=== PATIENT | female | born 1935 | race Caucasian/White ===

== ENCOUNTER → 2017-06-04 | Outpatient (CLI) | payer MEDICARE, OTHER | END | disposition home or self-care (01) | LOC: GMAM 16:36 | PROVIDERS: ATTEND Family Medicine | DX: E03.9 Hypothyroidism, unspecified (principal); E55.9 Vitamin D deficiency, unspecified ==

== ENCOUNTER → 2017-06-10 | Outpatient (CLI) | payer MEDICARE, OTHER | LOC: SL 19:30 | PROVIDERS: ATTEND Family Medicine | DX: G47.10 Hypersomnia, unspecified (principal); G47.9 Sleep disorder, unspecified; R06.83 Snoring; G47.00 Insomnia, unspecified; I25.9 Chronic ischemic heart disease, unspecified; I10 Essential (primary) hypertension ==

== ENCOUNTER → 2017-09-09 | Outpatient (CLI) | payer MEDICARE, OTHER | LOC: SL 20:23 | PROVIDERS: ATTEND Family Medicine | DX: R06.83 Snoring (principal); G47.9 Sleep disorder, unspecified; I10 Essential (primary) hypertension; G47.10 Hypersomnia, unspecified ==

== ENCOUNTER → 2018-03-28 | Outpatient (CLI) | payer MEDICARE, OTHER | LOC: GMAM 14:26 | PROVIDERS: ATTEND Family Medicine | DX: E03.9 Hypothyroidism, unspecified (principal); E55.9 Vitamin D deficiency, unspecified ==

== ENCOUNTER → 2018-05-21 | Outpatient (CLI) | payer MEDICARE, OTHER ==
--- NOTE | 2018-05-21 09:32 | MRI ---
EXAM DESCRIPTION: Brain w/wo Contrast CLINICAL HISTORY: TIA, episode in April 2018 unable to speak COMPARISON: None available TECHNIQUE: MRI of the brain is performed according to our usual protocol including multiplanar multi sequence technique. Post gadolinium imaging is performed following IV administration of routine adult dose of gadolinium contrast IV. FINDINGS: Sagittal T1 images show intact corpus callosum. Convex upper margin of the pituitary gland may indicate pituitary cyst or adenoma. Targeted MRI of the pituitary gland could be performed if clinically indicated. Normal T1 appearance of the desiree and medulla and upper cervical cord. Normal signal intensity within the clivus and calvarium. Axial T2 fat sat images reveal preservation of intracranial vascular flow voids. Normal calles matter T2 signal intensity. Abnormal white matter hyperintensity is extensive. Prominent ventricles and sulci are consistent with age-related cerebral volume loss.. The globes appear intact and symmetrical. Mucosal thickening and opacification of the left maxillary sinus suggests chronic sinusitis. No abnormal fluid signal in the other paranasal sinuses, tympanic cavities or mastoid air cells. Axial flair images show confluent white matter hyperintensities in the subcortical and central white matter of the cerebral hemispheres. 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 Diffusion weighted images are negative for focal intense increased signal intensity in the brain parenchyma to suggest restricted diffusion. ADC mapping is negative. Axial T1 precontrast images show normal calles-white matter differentiation. No high signal intensity hemorrhagic lesion of the brain parenchyma. No subdural hematoma. Minimal signal loss suggesting calcified intracranial vessels and incidental basal ganglial calcification. Axial susceptibility weighted images are otherwise negative for focal signal loss to suggest abnormal brain parenchymal calcification or hemosiderin deposition. After IV contrast, axial T1 images show normal enhancement of intracranial vessels. No enhancing intracranial mass or abnormal parenchymal enhancement to suggest disruption of the blood brain barrier. Positive mucosal enhancement of the left maxillary sinus. Coronal T1 postcontrast images show normal dural sinus enhancement. There is inhomogeneous enhancement of the pituitary gland with lower signal intensity in the left side of the gland where the superior margin is convex. There is slight rightward deviation of the pituitary stalk. This would suggest the presence of a left-sided pituitary lesion 8 mm consistent with a microadenoma. Sagittal postcontrast images confirm the findings. IMPRESSION: Senescent brain with extensive chronic microvascular ischemic changes. 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 Electronically signed by: Dung Bravo MD 05/21/2018 9:30 AM [facility]
== END ==
LOC: MRI 08:07
PROVIDERS: ATTEND Family Medicine
DX: G45.9 Transient cerebral ischemic attack, unspecified (principal); J32.9 Chronic sinusitis, unspecified; E23.7 Disorder of pituitary gland, unspecified

== ENCOUNTER → 2018-06-16 | Outpatient (CLI) | payer MEDICARE, OTHER | LOC: GMAM 18:26 | PROVIDERS: ATTEND Family Medicine | DX: D35.2 Benign neoplasm of pituitary gland (principal) ==

== ENCOUNTER → 2018-06-19 | Outpatient (CLI) | payer MEDICARE, OTHER ==
--- NOTE | 2018-06-19 15:41 | CT ---
EXAM DESCRIPTION: Head CLINICAL HISTORY: TIA COMPARISON: Previous MRI of the brain May 21, 2018 TECHNIQUE: Noncontrast head CT was performed with routine protocol. FINDINGS: Normal calles-white matter differentiation. Ventricles and sulci are prominent consistent with age-related cerebral volume loss. Low density areas in the white matter are consistent with chronic microvascular ischemic changes in both cerebral hemispheres. This pattern was seen on the previous MRI of the brain. No high density hemorrhage, focal edema or shift of the midline. No sulcal effacement. Normal orbital contents. Basilar cisterns appear clear. Intact calvarium with no fracture or lytic lesion. Normal aeration of tympanic cavities and mastoid air cells. Complete opacification of the left maxillary sinus suggests chronic sinusitis or mucocele. Sclerotic bone is seen around the abnormal fluid collection with thinning of bone medially. Correlated with ENT exam. There is calcification of the intracranial internal carotid arteries advanced degenerative changes of the temporomandibular joints. Skull base appears intact. Symmetrical internal auditory canals. IMPRESSION: Senescent brain with chronic microvascular ischemic changes in the cerebral white matter. Left maxillary sinus mucocele. No acute intracranial pathologic process. This exam was performed according to our departmental dose-optimization program, which includes automated exposure control, adjustment of the mA and/or kV according to patient size and/or use of iterative reconstruction technique. Total DLP equals 859.97 mGycm. Electronically signed by: Dung Bravo MD 06/19/2018 3:39 PM [facility]
--- NOTE | 2018-06-20 07:40 | CT ---
EXAM DESCRIPTION: CT neck with contrast CLINICAL HISTORY: NECK MASS COMPARISON: None Available. TECHNIQUE: Spiral CT with multiplanar reformatted images. Intravenous iodinated nonionic contrast This exam was performed according to our departmental dose-optimization program, which includes automated exposure control, adjustment of the mA and/or kV according to patient size and/or use of iterative reconstruction technique. 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 Approximate measurements 1.3 x 1.2 x 2 cm. Normal appearance of the parotid, submandibular glands. Multinodular thyroid. No suspicious thyroid lesion. Dominant cyst/nodule on the left 1.2 cm. No imaging follow-up necessary No mass lesion elsewhere throughout the neck. No lymphadenopathy Visualized lung bases are clear No acute bony abnormality. Cervical spondylosis. Degenerative disc disease primarily C4-5 and C5-C6. 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
== END ==
LOC: CT 14:00
PROVIDERS: ATTEND Family Medicine
DX: G45.9 Transient cerebral ischemic attack, unspecified (principal); R22.9 Localized swelling, mass and lump, unspecified; D35.2 Benign neoplasm of pituitary gland; J34.1 Cyst and mucocele of nose and nasal sinus; I77.89 Other specified disorders of arteries and arterioles

== ENCOUNTER → 2018-06-25 | Outpatient (CLI) | payer MEDICARE, OTHER | LOC: GMAM 16:38 | PROVIDERS: ATTEND Family Medicine | DX: I65.22 Occlusion and stenosis of left carotid artery (principal) ==

== ENCOUNTER → 2018-08-04 | Outpatient (CLI) | payer MEDICARE, OTHER | LOC: GMAM 10:44 | PROVIDERS: ATTEND Family Medicine | DX: Z01.812 Encounter for preprocedural laboratory examination (principal); I48.91 Unspecified atrial fibrillation ==

== ENCOUNTER 2018-09-24 13:12 | Emergency (ER) | payer MEDICARE, OTHER ==
[2018-09-24 14:54] VITALS: TEMP 97
[2018-09-24] MEDS ORDERED: SODIUM CHLORIDE 0.9% (FLUSH) 10 ML SYG IV PRN (15:13)
--- NOTE | 2018-09-24 15:52 | CT ---
EXAM DESCRIPTION: Head CLINICAL HISTORY: tia COMPARISON: Previous CT head June 19, 2018 TECHNIQUE: Noncontrast head CT was performed with routine protocol. FINDINGS: Normal calles-white matter differentiation. Ventricles and sulci are prominent consistent with age-related cerebral volume loss. Low density white matter is consistent with chronic microvascular ischemic change. The pattern is stable compared to previous study. No high density hemorrhage, focal edema or shift of the midline. No sulcal effacement. Normal orbital contents. Basilar cisterns appear clear. Intact calvarium with no fracture or lytic lesion. Normal aeration of tympanic cavities and mastoid air cells. No fluid levels in the paranasal sinuses. Skull base appears intact. Symmetrical internal auditory canals. Coronal and sagittal reformatted images confirm the findings. IMPRESSION: No acute intracranial pathologic process. This exam was performed according to our departmental dose-optimization program, which includes automated exposure control, adjustment of the mA and/or kV according to patient size and/or use of iterative reconstruction technique. Total DLP equals 859.97 mGycm. Electronically signed by: Dung Bravo MD 09/24/2018 3:50 PM CDT
--- NOTE | 2018-09-24 15:58 | RAD ---
EXAM DESCRIPTION: Chest,1 View CLINICAL HISTORY: 83 years Female, weakness COMPARISON: Previous study August 04, 2018 TECHNIQUE: AP portable chest. FINDINGS: Heart size is prominent with normal pulmonary vascularity. Dextroscoliotic curvature of the thoracic spine. Right hemidiaphragm is elevated. No consolidating infiltrate. No pulmonary mass or worrisome nodule. No pneumothorax or pleural effusion. Bones are unremarkable. IMPRESSION: No acute process is identified in the chest. Electronically signed by: Dung Bravo MD 09/24/2018 3:55 PM CDT
--- NOTE | 2018-09-24 15:59 | RAD ---
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 No fracture or dislocation is identified. 2. Screws are seen fixating the acetabular component. No hardware failure or loosening is seen. Osseous structures are diffusely osteopenic. Osseous body lateral to the acetabulum is again seen similar to previous exam. Left hip arthroplasty is partly visualized. Electronically signed by: Tirso Shaikh MD 09/24/2018 3:57 PM CDT
--- NOTE | 2018-09-24 16:01 | RAD ---
EXAM DESCRIPTION: Pelvis,2 or More Views CLINICAL HISTORY: fall pain COMPARISON: June 03, 2015 IMPRESSION: AP neutral and frog-leg lateral views of the pelvis show diffuse osteopenia the osseous structures. Bilateral total hip arthroplasties are seen with cement fixation of the right femoral component. No fracture or dislocation is identified. Severe disc degenerative changes and levocurvature of the lower lumbar spine is partly included in the [id number]. Evaluation for fracture is limited given the degree of osteopenia. If high clinical concern for acute fracture, correlation with MRI recommended given its greater sensitivity in the osteopenic patient. If the patient cannot tolerate MRI imaging or more urgent imaging is required, CT could be performed, however it is less sensitive in the osteopenic patient when compared to MRI. Electronically signed by: Tirso Shaikh MD 09/24/2018 3:59 PM CDT
--- NOTE | 2018-09-24 16:34 | ED.PDOC ---
History of Present Illness - General Chief Complaint: General Stated Complaint: weakness, confusion and fall last week Time Seen by Provider: 09/24/18 13:55 Source: patient, family Exam Limitations: no limitations - History of Present Illness Initial Comments: PT PRESENTS TO THE ED BROUGHT IN BY HER DAUGHTER DUE TO DIFFICULTY WALKING AND APPARENT RLE WEAKNESS. PTS DAUGHTER STATES THAT PT WAS FUNCTIONING NORMALLY YESTERDAY MORNING BUT SHE NOTICED DIFFICULTY WITH AMBULATION LAST NIGHT WHEN PT WAS ATTEMPTING TO GO EAT DINNER AND USE THE BATHROOM. PTS DAUGHTER STATES THAT SHE WAS DRAGGING HER RIGHT LEG AND IT TOOK 1 HOUR TO GET TO THE BATHROOM AND BACK. NO FACIAL DROOP, SLURRED SPEECH, OR UPPER EXTREMITY WEAKNESS HAS BEEN REPORTED. PTS DAUGHTER DOES ADD THAT PTS PHYSICAL FUNCTIONING AND MENTAL STATUS HAS BEEN DECLINING SINCE HAVING A KNEE REPLACEMENT DONE ON 08/18/18. DAUGHTER ALSO STATES THAT PATIENT FALL WHILE GOING UP STAIRS AT THE [facility]CTORS OFFICE LAST WEEK SUSTAINING BRUISES TO HER RIGHT ARM AND HIP. Timing/Duration: intermittent, resolved prior to arrival Severity: moderate Associated Symptoms: denies symptoms Allergies/Adverse Reactions: Allergies Morphine Adverse Reaction (Verified 09/24/18 14:51) Home Medications: Ambulatory Orders Lisinopril & Hydrochlorothiazi [Lisinopril/Hctz 20-12.5 mg] 1 tab PO DAILY 05/31/14 Multiple Vitamins W/ Minerals [Centrum] 1 tab PO DAILY 05/31/14 [place]-3 Fatty Acids [Fish Oil] 1,200 mg PO DAILY 05/31/14 Rosuvastatin Calcium [Crestor] 40 mg PO BEDTIME 05/31/14 Sulfamethoxazole-Trimethoprim [Bactrim Ds 800-160 mg] 1 tab PO BID 05/31/14 rifAMPin [Rifampin] 300 mg PO BID 05/31/14 Hydrocodone-Acetaminophen [Hydrocodone/Acetaminophen 5-325 mg] 1 tab PO Q6H PRN #90 tab 06/07/14 Rivaroxaban [Xarelto] 10 mg PO QD #30 tab 06/07/14 Review of Systems - Review of Systems Constitutional: Denies: chills, fever EENTM: Denies: blurred vision, double vision Respiratory: Denies: cough, short of breath Cardiology: Denies: chest pain, palpitations Gastrointestinal/Abdominal: Denies: abdominal pain, nausea, vomiting Genitourinary: Denies: dysuria, frequency Musculoskeletal: Denies: back pain, muscle pain Skin: Denies: dryness, lesions Neurological: States: weakness. Denies: headache, numbness Endocrine: States: no symptoms reported Hematologic/Lymphatic: States: no symptoms reported Past Medical History (General) - Patient Medical History Hx Seizures: No Hx Stroke: Yes - TIA Hx Dementia: No Hx Asthma: No Hx of COPD: No Hx Cardiac Disorders: Yes Hx Congestive Heart Failure: No Hx Pacemaker: No Hx Hypertension: Yes Hx Thyroid Disease: No Hx Diabetes: No Hx Gastroesophageal Reflux: No Hx Renal Disease: No Hx Cancer: No Hx of HIV: No Hx Hepatitis C: No Hx MRSA: No MRSA Source:: Nose Surgical History: appendectomy, Hysterectomy - Vaccination History Hx Tetanus, Diphtheria Vaccination: Yes Hx Influenza Vaccination: Yes Hx Pneumococcal Vaccination: Yes Immunizations Up to Date: Yes - Social History Hx Tobacco Use: No Hx Chewing Tobacco Use: No Hx Alcohol Use: No Hx Substance Use: No Hx Substance Use Treatment: No Hx Depression: No Feels Threatened In Home Enviroment: No Feels Threatened In a Relationship: No Hx Physical Abuse: No Hx Emotional Abuse: No Hx Suspected Abuse: No - Female History Patient is a Female of Child Bearing Age (10 -59 yrs old): No Patient : No Family Medical History - Family History Mother Family History: No Known Living Status: Hx Family Asthma: No Hx Family Congestive Heart Failure: No Hx Family Hypertension: No Physical Exam - Physical Exam General Appearance: Alert, Frail, No apparent distress, Well Developed, Well Groomed, Well Hydrated Ears, Nose, Throat: hearing grossly normal Neck: non-tender, full range of motion Respiratory: lungs clear, normal breath sounds, no respiratory distress Cardiovascular/Chest: normal peripheral pulses, regular rate, rhythm Gastrointestinal/Abdominal: non tender, soft, no organomegaly Back Exam: normal inspection, no CVA tenderness Extremity: pedal edema, other - BRUISING NOTED TO RIGHT ELBOW AND RIGHT HIP Neurologic: no motor/sensory deficits, alert, normal mood/affect Progress - Progress Progress: 09/24/18 17:30 PT RESTING COMFORTABLY, LABS, DIAGNOSTICS, AND PLAN DISCUSSED WITH PATIENT AND FAMILY. NO CHANGE IN NEUROLOGIC FINDINGS. PTS BP IS ELEVATED TO 180/109. LABETALOL 10MG ORDERED. 09/24/18 18:29 REPEAT BP 164/83 - Results/Orders Results/Orders: Laboratory Tests 05/09/24/18 09/24/18 15:13 15:13 15:16 WBC 7.4 RBC 4.48 Hgb 13.7 Hct 41.1 MCV 91.7 MCH 30.5 MCHC 33.3 RDW 14.2 Plt Count 258 MPV 6.6 L Absolute Neuts (auto) 5.40 Absolute Lymphs (auto) 1.20 Absolute Monos (auto) 0.80 Absolute Eos (auto) 0.00 Absolute Basos (auto) 0.00 Neutrophils % 72.2 Lymphocytes % 16.3 L Monocytes % 10.4 H Eosinophils % 0.5 L Basophils % 0.6 Sodium 130 L Potassium 3.9 Chloride 96 L Carbon Dioxide 23 Anion Gap 14.9 BUN 15 Creatinine 0.55 L BUN/Creatinine Ratio 27.3 H POC Glucose 113 H Random Glucose 99 Serum Osmolality 261.7 L Calcium 9.0 Total Bilirubin 0.9 AST 22 ALT 22 Alkaline Phosphatase 91 Creatine Kinase 48 CK-MB (CK-2) 1.6 Troponin I < 0.02 Serum Total Protein 7.0 Albumin 4.1 Globulin 2.9 Albumin/Globulin Ratio 1.4 - EKG/XRAY/CT EKG: Sinus - @70BPM, NL INTERVALS, NL AXIS, no ST T wave changes - NO OLD EKG FOR COMPARISON XRAY: chest - NO ACUTE FINDINGS PER RAD CT: HEAD: NO ACUTE FINDINGS CT Ordered: Yes CT Interpretation Call Back: No Departure - Departure Clinical Impression: TIA (transient ischemic attack), Declining functional status Time of Disposition: 18:28 Disposition: Transfer to Hospital Condition: Fair Departure Forms: ED Discharge - Pt. Copy, Patient Portal Self Enrollment Referrals: DULCE MARIA DURAND [Primary Care Provider] - 1-2 Weeks Home Medications: Ambulatory Orders Lisinopril & Hydrochlorothiazi [Lisinopril/Hctz 20-12.5 mg] 1 tab PO DAILY 05/31/14 Multiple Vitamins W/ Minerals [Centrum] 1 tab PO DAILY 05/31/14 [place]-3 Fatty Acids [Fish Oil] 1,200 mg PO DAILY 05/31/14 Rosuvastatin Calcium [Crestor] 40 mg PO BEDTIME 05/31/14 Sulfamethoxazole-Trimethoprim [Bactrim Ds 800-160 mg] 1 tab PO BID 05/31/14 rifAMPin [Rifampin] 300 mg PO BID 05/31/14 Hydrocodone-Acetaminophen [Hydrocodone/Acetaminophen 5-325 mg] 1 tab PO Q6H PRN #90 tab 06/07/14 Rivaroxaban [Xarelto] 10 mg PO QD #30 tab 06/07/14 Transfer to Outside Facility - Transfer Information Accepting Provider:: DR. AYALA Accepting Facility: [facility] Reason for Transfer: required specialist not available - NEUROLOGY
[2018-09-24] MEDS ORDERED: LABETALOL INJ 5 MG/ML VIAL IV ONE ×2 (16:55→18:02)
[2018-09-24 19:09] VITALS: BP 155/77; O2SAT 95
== END 2018-09-24 19:12 | disposition short-term general hospital (02) ==
LOC: ER 13:12
DX: G45.9 Transient cerebral ischemic attack, unspecified (principal); R53.81 Other malaise; S70.01XA Contusion of right hip, initial encounter; S40.021A Contusion of right upper arm, initial encounter; I10 Essential (primary) hypertension; I51.9 Heart disease, unspecified; W10.9XXA Fall (on) (from) unspecified stairs and steps, initial encounter; Y92.531 Health care provider office as the place of occurrence of the external cause; Z86.73 Personal history of transient ischemic attack (TIA), and cerebral infarction without residual deficits; Z79.899 Other long term (current) drug therapy; Z88.5 Allergy status to narcotic agent

== ENCOUNTER → 2018-12-17 | Outpatient (CLI) | payer MEDICARE, OTHER | LOC: GMAM 14:23 | PROVIDERS: ATTEND Family Medicine | DX: E55.9 Vitamin D deficiency, unspecified (principal) ==

== ENCOUNTER → 2019-02-09 | Outpatient (CLI) | payer MEDICARE, OTHER | LOC: SL 19:30 | PROVIDERS: ATTEND Family Medicine | DX: G47.10 Hypersomnia, unspecified (principal); G31.84 Mild cognitive impairment of uncertain or unknown etiology; F39 Unspecified mood [affective] disorder ==

== ENCOUNTER → 2019-04-28 | Outpatient (CLI) | payer MEDICARE, OTHER | LOC: BFHH 14:47 | PROVIDERS: ATTEND Family Medicine | DX: N39.0 Urinary tract infection, site not specified (principal) ==

== ENCOUNTER → 2020-03-28 | Outpatient (CLI) | payer MEDICARE, OTHER | LOC: GMAM 16:37 | PROVIDERS: ATTEND Family Medicine | DX: E03.9 Hypothyroidism, unspecified (principal); E55.9 Vitamin D deficiency, unspecified; I10 Essential (primary) hypertension; E78.2 Mixed hyperlipidemia ==